=== PATIENT | female | born 2000 | race Two or more races ===

== ENCOUNTER 2020-09-30 16:07 | Emergency (ER) | payer OTHER ==
[~2020-09-30] VITALS: Ht 154.9 cm; Wt 59.0 kg
[2020-09-30 17:27] LABS: Urine Bacteria NONE SEEN /hpf (None Seen); Urine Blood Negative /uL (Negative); Urine Mucus FEW (None Seen); Urine Specific Gravity 1.015 (1.001-1.035); Urine WBC 16 /hpf (0 - 5)
[2020-09-30] MEDS ORDERED: IBUPROFEN 800 MG TAB PO ONE (21:00)
[2020-09-30 21:27] VITALS: BP 125/90
== END 2020-09-30 22:25 | disposition home or self-care (01) ==
LOC: ER 16:07
DX: R51.9 Headache, unspecified (principal); V29.9XXA Motorcycle rider (driver) (passenger) injured in unspecified traffic accident, initial encounter; Y93.89 Activity, other specified; Y92.89 Other specified places as the place of occurrence of the external cause; Y99.8 Other external cause status
CPT/HCPCS: 70450; 81001; 81025